=== PATIENT | male | born 1955 | race Caucasian/White ===

== ENCOUNTER 2020-03-03 11:54 | Emergency (ER) | payer BC, MEDICARE ==
[~2020-03-03] VITALS: Ht 182.9 cm; Wt 85.5 kg
[2020-03-03 12:01] VITALS: BP 152/96
--- NOTE | 2020-03-03 12:40 | NUR ---
SOB, COUGH, RUNNY NOSE, DIARRHEA, CHEST AND BACK ACHING "I THINK ITS FROM ALL THE COUGHING." X 1 DAY "I THINK ITS FROM THE SMOKE" ROOM AIR 97%. CONSTANT DRY COUGH NOTED. NO KNOWN EXPOSURE. WORKS ALL [facility]
--- NOTE | 2020-03-03 13:14 | NUR ---
TO CX[facility] PROVIDER TO BEDSIDE-REPORTS PATIENT TO BE SWABBED FOR COVID
[2020-03-03 13:17] LABS: BASOPHILS # (AUTO) 0.06 x10^3/uL (0-0.1); BASOPHILS % (AUTO) 1 % (0-1); EOSINOPHILS # (AUTO) 0.05 x10^3/uL (0-0.4); EOSINOPHILS % (AUTO) 0 % (1-7); LYMPHOCYTES # (AUTO) 3.33 x10^3/uL (1-3.4); LYMPHOCYTES % (AUTO) 30 % (22-44); MD NO; MEAN CORPUSCULAR HEMOGLOBIN 33.2 pg (27.5-34.5); MEAN CORPUSCULAR HGB CONC 33.1 g/dL (33.2-36.2); MEAN CORPUSCULAR VOLUME 100.2 fL (81-97); MEAN PLATELET VOLUME 8.1 fL (7.4-10.4); MONOCYTES # (AUTO) 0.63 x10^3/uL (0.2-0.8); MONOCYTES % (AUTO) 6 % (2-9); NEUTROPHILS # (AUTO) 7.19 x10^3/uL (1.8-6.8); NEUTROPHILS % (AUTO) 64 % (42-75); PLATELET COUNT 230 x10^3/uL (130-400); RED BLOOD COUNT 5.24 x10^6/uL (4.38-5.82); RED CELL DISTRIBUTION WIDTH 12.6 % (9.4-14.8)
[2020-03-03 13:25] LABS: ALANINE AMINOTRANSFERASE 31 U/L (12-78); ALBUMIN 4.1 g/dL (3.4-5.0); ANION GAP 9 mmol/L (5-15); CALCIUM 9.3 mg/dL (8.5-10.1); CHLORIDE 108 mmol/L (98-107); CREATININE 0.93 mg/dL (0.7-1.3)
[2020-03-03 13:30] LABS: ALKALINE PHOSPHATASE 148 U/L (45-117); BILIRUBIN,TOTAL 0.3 mg/dL (0.2-1.0); TROPONIN I < 0.015 ng/mL (0.000-0.045)
--- NOTE | 2020-03-03 13:41 | NUR ---
SWABBED FOR COVID Addendum: 03/03/20 at 1341 by RFRUHLING SAMPLE WALKED TO LAB BY EMT
== END 2020-03-03 13:56 | disposition home or self-care (01) ==
LOC: ED 12:44
DX: J06.9 Acute upper respiratory infection, unspecified (principal); D72.829 Elevated white blood cell count, unspecified; Z20.828 Contact with and (suspected) exposure to other viral communicable diseases; D75.89 Other specified diseases of blood and blood-forming organs; R94.31 Abnormal electrocardiogram [ECG] [EKG]
CPT/HCPCS: 36415; 71046; 80053; 84484; 85025; 87635; 93005; 99285